=== PATIENT | male | born 1935 | race Caucasian/White ===

== ENCOUNTER 2016-12-04 10:28 | Outpatient (CLI) | payer MEDICARE, OTHER ==
--- NOTE | ~2016-12-04 | HEMODYNAMI ---
PATIENT:GISELLE FERRARA MEDICAL RECORD: [id number] : 39 LOCATION:[facility] ADMISSION DATE: 12/04/16 Generatedon:12/04/201613:55 Patient name: GISELLE FERRARA Patient #: [id number] SSN: DO B: 1935 Date of study: 12/04/2016 Page: Of Hemodynamic Procedure Report Patient Data Patient Demographics Procedure consent was obtained First Name: GISELLE Gender: Male Last Name: JOSIAS : 1935 [facility] Initial: MAISHA Age: 81 year(s) Patient #: [id number] Race: Unknown Additional ID: [id number] Contact details Address: [address] [place] [address] State: [place] City: [place] Zip code: [address] Past Medical History Allergies: No known allergies Admission Admission Data Admission Date: 12/04/2016 Admission Time: 10:28 Admit Source: Other Lab Results Lab Result Date: 12/04/2016 Lab Result Time: 10:55 CBC Name Units Result Min Max Hematocrit % 43.5 --(*---)-- 42 54 Hemoglobin g/dl 14.6 --(-*--)-- 13.5 17.5 Procedure Procedure Types Cath Procedure Diagnostic Procedure PPM/ICD Permanent Pacer Generator Exg. Miscellaneous Procedures Moderate Sedation up to 30 minutes Procedure Description Procedure Date Procedure Date: 12/04/2016 Procedure Start Time: 13:07 Procedure Staff Name Function Yohan De Guzman MD Performing Physician Martina Nina RT Scrub Mayra David RN Nurse Christiano Soler RT Monitor Pete Bull MD Assisting physician Procedure Data Cath Procedure Fluoroscopy Diagnostic fluoroscopy Total fluoroscopy Time: 0 time: 0 min min Diagnostic fluoroscopy Total fluoroscopy dose: 0 dose: 0 mGy mGy Contrast Material Contrast Material Type Amount (ml) Isovue 300 0 Estimated blood loss: 5 ml Procedure Complications No complications Procedure Medications Medication Administration Route Dosage Ancef (1Gm/50ml NS) I.V.P.B 1 g Ancef Irrigation Topical 1 g (1gm/500ml NS) Lidocaine 1% with added to field 20 ml Epi Bupivacaine 0.5% S.Q. 10 ml 0.9% NaCl I.V. Versed I.V. 2 mg Fentanyl I.V. 100 mcg Versed I.V. 0.5 mg Fentanyl I.V. 25 mcg Hemodynamics Rest HGB: 14.6 (g/dl) Heart Rate: 65 (bpm) Snapshots Pre Cath Intra NCS Post Cath Vital Signs Time Heart Resp SPO2 etCO2 NIBP (mmHg) Rhythm Pain Sedation Rate (ipm) (%) (mmHg) Status Level (bpm) 13:34:18 66 14 96 32.5 186/107(173) NSR 0 (11) 10(A) , No pain 13:38:55 68 15 97 35.5 172/94(143) NSR 0 (11) 10(A) , No pain 13:43:19 63 16 93 20.1 135/81(130) NSR 0 (11) 9(A) , No pain 13:48:38 60 17 95 26.4 153/86(135) NSR 0 (11) 9(A) , No pain 13:53:05 59 16 97 0 158/88(128) NSR 0 (11) 10(A) , No pain Medications Time Medication Route Dose Verified Delivered Reason Notes Effectiv eness by by 13:25:29 Ancef I.V.P.B 1 g Yohan Nunez used for (1Gm/50ml [facility] RN procedure NS) 13:25:40 Ancef Topical 1 g Yohan Cosmeian used for Irrigation [facility] Bull MD procedure (1gm/500ml NS) 13:35:43 Versed I.V. 2 mg Yohan Nunez for [facility] RN sedation 13:35:52 Fentanyl I.V. 100 Yohan Valle[address] for mcg [facility] RN sedation 13:37:17 Lidocaine added 20 ml Yohan Freeman for local 1% with Epi to [facility] Bull MD anesthetic field 13:37:26 Bupivacaine S.Q. 10 ml Yohan Freeman for local 0.5% [facility] Bull MD anesthetic MD 13:37:35 0.9% NaCl I.V. kvo Yohan Nunez Per ml/hr [facility] RN physician 13:40:18 Versed I.V. 0.5 Yohan Nunez for mg [facility] RN sedation 13:40:22 Fentanyl I.V. 25 Yohan Nunez for mcg [facility] RN sedation Procedure Log Time Note 12:45:35 Mayra David RN sent for patient. Start room use. 13:08:06 Informed consent obtained and on chart 13:08:14 Admit Source: Other 13:08:49 Time tracking: Regular hours 13:08:52 Plan of Care:Hemodynamics will remain stable., Cardiac rhythm will remain stable., Comfort level will be maintained., Respiratory function will remain adequate., Patient/ family verbilizes understanding of procedure., Procedure tolerated without complication., Recovers from procedure without complications.. 13:09:03 H&P Date Dictated: 11/05/2016 Within 30 days and on chart., H&P Addendum completed by physician on day of procedure. (MUST COMPLETE FOR ALL OUTPATIENTS). 13::40 Lab Result : Hemoglobin 14.6 g/dl 13::40 Lab Result : Hematocrit 43.5 % 13:09:42 Lab results completed and on chart. 13:20:57 Patient received from Pre/Post Procedure Room to [facility] Alert and oriented. Tansferred to table in Supine position. 13:20:59 Warm blankets applied, and pancho hugger turned on for patient comfort. 13:20:59 Correct patient and procedure confirmed by team. 13:21:00 ECG and BP/O2 sat monitors applied to patient. 13:21:01 Pre-procedure instructions explained to patient. 13:21:01 Pre-op teaching completed and patient verbalized understanding. 13:21:02 Family in waiting room. 13:21:04 Patient NPO since Midnight. 13:21:08 Patient allergic to No known allergies 13:21:10 Is the patient allergic to Iodine/contrast media? No. 13:25:29 Ancef (1Gm/50ml NS) 1 g I.V.P.B was administered by Mayra David RN; used for procedure; ::40 Ancef Irrigation (1gm/500ml NS) 1 g Topical was administered by Pete Bull MD; used for procedure; 13:32:22 Is patient on blood thinner?Yes 13:32:25 ACC The patient was administered the following blood thiners within the last 24 hours: ACCPlavix 13:32:27 Patient diabetic? No. 13:32:31 Snore? Yes 13:32:32 Sleep apnea? No 13:32:33 Deviated septum? No 13:32:33 Opens mouth fully? Yes 13:32:34 Sticks out tongue? Yes 13:32:36 Airway obstruction? No ? 13:32:42 Dentures? Yes IN TIGHT 13:32:53 Vital chart was started 13:32:56 Baseline sample Acquired. 13:32:59 Rhythm: paced 13:33:04 Patient pain scale 0/10 ?. 13:33:09 IV patent on arrival in left hand with 0.9% NaCl at [facility]. 13:33:17 Left chest area was prepped with chlora-prep and draped in sterile fashion 13:33:27 [employer] sales solutions representative AMANDA ART present for procedure. 13:33:35 Alarms reviewed by R. N. 13:33:35 Sharps counted by scrub and verified by R.N. 13:33:36 Physician arrived 13:33:36 --------ALL STOP TIME OUT------ 13:33:37 Final Timeout: patient, procedure, and site verified with staff and physician. All members of the team are in agreement. 13:33:42 Left chest site verified by team. 13:33:47 Physical assessment completed. ASA score P 2 - A patient with mild systemic disease as per Pete Bull MD. 13:33:50 Sedation plan: IV Moderate Sedation Versed, Fentanyl 13:35:43 Versed 2 mg I.V. was administered by Mayra David RN; for sedation; 13:35:52 Fentanyl 100 mcg I.V. was administered by Mayra David RN; for sedation; 13:37:02 Pre sharps counted by scrub and verified by RN: Sutures: 7 Sponges: 5 Stick needles: 0 Skin needles: 2 Blade: 1 Cautery: 1 13:37:04 Grounding pad site Left thigh. 13:37:05 Grounding pad site free from injury. 13:37:17 Lidocaine 1% with Epi 20 ml added to field was administered by Pete Bull MD; for local anesthetic; 13:37:26 Bupivacaine 0.5% 10 ml S.Q. was administered by Pete Bull MD; for local anesthetic; 13:37:35 0.9% NaCl kvo ml/hr I.V. was administered by Mayra David RN; Per physician; 13:38:10 Lidocaine 1% w/epi and Bupivacaine 0.5% to left subclavicular area by Pete Bull MD. 13:38:44 Incision made to left subclavicular area. 13:39:00 Generator pocket made/opened. 13:40:18 Versed 0.5 mg I.V. was administered by Mayra David RN; for sedation; 13:40:21 5.0 Monocryl PS3 [id number] opened to sterile field. 13:40:22 3.0 Vicryl Multipack [id number] opened to sterile field. 13:40:22 Fentanyl 25 mcg I.V. was administered by Mayra David RN; for sedation; 13:40:23 2.0 Ticron Multipack opened to sterile field. 13:42:42 Atrial lead tested. 13:42:45 Ventricular lead tested. 13:43:30 PPM Dual was removed.. 13:43:35 WISE s.r.la MRI PPM Dual Generator [id number] opened to sterile field. 13:43:41 PPM Dual was attached to lead(s) and inserted into pocket. 13:44:52 Device pocket was irrigated with Ancef. 13:45:33 Generator was sutured in place with 2-0 ticron. 13:46:39 Subcutaneous closure was completed with 3-0 vicryl plus. 13:47:27 Parameters-- Generator: Mode: MVP. Lower Rate: 60bpm. Upper Rate: 120bpm. 13:47:47 Parameters--Atrial P/R Wave: 2.3mV. Current: 2.0mA; Threshold: 0.4V; Impedence: 381OHMS. 13:48:04 Parameters--Ventricular P/R Wave: 3.8mV. Current: 1.4mA; Threshold: 0.4V; Impedence: 422OHMS. 13:48:47 Skin closure was completed with 5-0 monocryl. 13:52:01 Lt Chest incision was dressed with Mepilex dressing. 13:52:05 Procedure ended.(Physican Out) 13:52:32 Post sharps counted by scrub and verified by RN: Sutures: 7 Sponges: 5 Stick needles: 0 Skin needles: 2 Blade: 1 Cautery: 1 13:52:37 Fluoroscopy time 00.00 minutes. 13:52:40 Fluoroscopy dose: 0 mGy 13:52:40 Flurop Dose total: 0 13:52:43 Contrast amount:Isovue 300 0ml. 13:52:45 Sharps counted by scrub and verified by R.N. 13:53:49 Post Chest area:stable, soft, clean and dry 13:53:53 Post-procedure physical assessment completed. ASA score P 2 - A patient with mild systemic disease as per Pete Bull MD. 13:53:56 Post procedure rhythm: unchanged. 13:53:59 Estimated blood loss: 5 ml 13:54:00 Post procedure instruction explained to patient.Patient verbalizes understanding. 13:54:01 Patient needs reinforcement of post procedure teaching. 13:54:33 Procedure and supply charges have been captured, reviewed, submitted and are correct. 13:54:35 Procedure Complication : No complications 13:54:37 Vital chart was stopped 13:54:38 See physician's report for complete and final results. 13:54:39 Report given to Pre/Post Procedure Room. 13:54:42 Patient transfered to Pre/Post Procedure Room with Stretcher. 13:55:09 End room use (Document Last) Device Usage Item Name Manufacture Quantity Catalog Hospital Part Current Minimal Lo t# / Number Charge Number Stock Stock Serial# Code Medtronic Medtronic 1 [id number] 5 Advisa PV [id number] MRI PPM EX P: Dual 08-04-13 Generator A2DR01 5.0 Ethicon 1 [id number] 5 Monocryl PS3 [id number] 3.0 Ethicon 1 [id number] 5 Vicryl Multipack [id number] 2.0 Ethicon 6 [id number] [id number] [id number] 5 Ticron Multipack Signature Audit Shunk Stage Time Signature Unsigned Intra-Procedure 12/04/2016 Christiano Soler 1:55:39 PM RT(R) Signatures Monitor : Christiano Soler RT Signature : Date : Time : [place] [address] [place] [address]
[~2016-12-04 10:28] MED LIST: ADVAIR 250/501 DISK INH; ASPIRIN81 MG PO; ATIVAN1 MG PO; BAYER CHEWABLE81 MG PO; COMBIVENT RESPIM4 GM INH; COREG6.25 MG PO; DICLOFENAC SODI50 MG PO; FLINTSTONE1 TAB.CHEW PO; HYDROCODONE-APA1 TAB PO; NIASPAN500 MG PO; PLAVIX75 MG PO; ULTRAM50 MG PO; ZOCOR40 MG PO
[2016-12-04 10:51] VITALS: BP 151/81; BMI 27.2
[2016-12-04 11:11] LABS: HEMATOCRIT 43.5 % (42.0-54.0); HEMOGLOBIN 14.6 g/dL (13.5-17.5); MCH 31.5 pg (26.0-34.0); MCHC 33.6 g/dL (31.0-37.0); MEAN PLATELET VOLUME 9.8 fL (7.4-10.4); RBC 4.63 10x6/uL (4.20-6.10); RDW 14.9 % (11.5-14.5); WBC 5.8 10x3/uL (4.8-10.8)
[2016-12-04 11:25] LABS: ANION GAP 10.3 mmol/L (8-16); CREATININE - SERUM 1.2 mg/dL (0.6-1.3); POTASSIUM - SERUM 4.3 mmol/L (3.5-5.1)
[2016-12-04 11:35] LABS: INR 0.99 (0.85-1.17); PROTIME 12.9 SECONDS (11.6-15.0)
[2016-12-04 11:41] LABS: APTT 26.8 SECONDS (22.8-39.4)
--- NOTE | 2016-12-04 14:21 | NUR ---
1415 RECEIVED PT FROM CHIEF COOK. PT IS ALERT, DENIES ANY C/O PAIN OR NAUSEA. DRESSING TO LEFT UPPER CHEST IS CDI, NO BLEEDING OR HEMATOMA NOTED. IV PATENT. FAMILY AT BEDSIDE. PO FLUIDS AND SANDWICH SERVED. VSS.
--- NOTE | 2016-12-04 14:30 | NUR ---
1430 SANDWICH AND PO FLUIDS SERVED.PT DENIES ANY C/O. DRESSING CDI, AT BEDSIDE.
--- NOTE | 2016-12-04 14:45 | NUR ---
1445 PT DENIES ANY C/O. VSS. DRESSING CDI. CALL LIGHT IN REACH.
--- NOTE | 2016-12-04 15:00 | NUR ---
1500 PT HAS JOSESITO SANDWICH AND PO FLUIDS WITH NO C/O NAUSEA. DRESSING REMAINS CDI. VSS. IV DC'D WITH CATH INTACT.
--- NOTE | 2016-12-04 16:08 | NUR ---
1520 PT IS DRESSED FOR DC TO HOME. DRESSING CDI, PT DENIES ANY C/O AT THIS TIME. DC INSTRUCTIONS REVIEWED AND PT/ VERBALIZE UNDERSTANDING. PT ESCORTED TO PRIVATE AUTO VIA WC BY NURSE WITH DRIVING HIM HOME.
--- NOTE | 2016-12-07 13:11 | OP ---
PATIENT NAME: GISELLE FERRARA MEDICAL RECORD: [id number] :39 LOCATION:[facility] ADMISSION DATE: SURGEON: CATERINA GARCIA MD DATE OF OPERATION: 12/04/2016 PREOPERATIVE DIAGNOSES: 1. End-of-life generator. 2. Coronary artery disease. 3. Hyperlipidemia. 4. Hypertension. 5. Atrial fibrillation. 6. Peripheral vascular disease. 7. Tobacco dependence syndrome. POSTOPERATIVE DIAGNOSES: 1. End-of-life generator. 2. Coronary artery disease. 3. Hyperlipidemia. 4. Hypertension. 5. Atrial fibrillation. 6. Peripheral vascular disease. 7. Tobacco dependence syndrome. PROCEDURE: Left subclavian vein dual lead pacemaker generator exchange. SURGEON: Caterina Garcia MD. REPORT OF PROCEDURE: The patient's left chest was prepped and draped in sterile fashion. A 20 mL of 1% lidocaine was infused in the surrounding tissues. A skin incision was made overlying the pacemaker. The pacemaker was eviscerated through the wound. The leads were detached from the pacemaker and checked and they were noted to be working appropriately. The new pacemaker was affixed to the leads and the pacemaker was placed back into the subcutaneous pouch. This was sutured into place with 0 Ti-Cron. The wound was then irrigated out with antibiotic solution. The subcutaneous tissues were then reapproximated with interrupted 3-0 Vicryl and the skin was closed with running subcutaneous 5-0 Monocryl. COMPLICATIONS: None. CONDITION: Stable. ANESTHESIA: Local MAC. BLOOD LOSS: Minimal. TRANSINT:[id number] Voice Confirmation ID: [id number] DOCUMENT ID: [id number] OPERATIVE REPORT [id number] GISELLE FERRARA CATERINA GARCIA MD at 1311 CC: BENSON WALLACE MD [id number] DICTATION DATE: 12/04/16 1355 FUR WEIGHER: 12/04/16 1419 DEP CLI 12/04/[address] [address]
== END 2016-12-04 15:20 | disposition home or self-care (01) ==
LOC: D.CATH 10:28
PROVIDERS: Internal Medicine Interventional Cardiology
DX: Z45.010 Encounter for checking and testing of cardiac pacemaker pulse generator [battery] (principal); I25.10 Atherosclerotic heart disease of native coronary artery without angina pectoris; E78.5 Hyperlipidemia, unspecified; I10 Essential (primary) hypertension; I48.91 Unspecified atrial fibrillation; I73.9 Peripheral vascular disease, unspecified; F17.200 Nicotine dependence, unspecified, uncomplicated; Z01.812 Encounter for preprocedural laboratory examination

== ENCOUNTER → 2018-01-03 12:22 | Outpatient (CLI) | payer MEDICARE, OTHER | END | disposition home or self-care (01) | LOC: D.US 12:22 | DX: M79.604 Pain in right leg (principal) ==

== ENCOUNTER → 2018-02-28 08:16 | Outpatient (CLI) | payer MEDICARE, OTHER | END | disposition home or self-care (01) | LOC: D.CT 08:16 | DX: C61 Malignant neoplasm of prostate (principal); M18.0 Bilateral primary osteoarthritis of first carpometacarpal joints ==

== ENCOUNTER 2018-04-28 09:47 | Outpatient (CLI) | payer MEDICARE, OTHER ==
[~2018-04-28] VITALS: Ht 182.9 cm; Wt 89.5 kg
--- NOTE | ~2018-04-28 | HEMODYNAMI ---
PATIENT:GISELLE FERRARA MEDICAL RECORD: [id number] : 39 LOCATION:[facility] ADMISSION DATE: 04/28/18 Generatedon:04/28/201815:32 Patient name: GISELLE FERRARA Patient #: [id number] SSN: DO B: 1935 Date of study: 04/28/2018 Page: Of Hemodynamic Procedure Report Patient Data Patient Demographics Procedure consent was obtained First Name: GISELLE Gender: Male Last Name: JOSIAS : 1935 [facility] Initial: MAISHA Age: 82 year(s) Patient #: [id number] Race: Unknown Additional ID: [id number] Contact details Address: [address] [place] [address] State: [place] City: [place] Zip code: [address] Past Medical History Allergies: No known allergies Admission Admission Data Admission Date: 04/28/2018 Admission Time: 9:47 Procedure Procedure Types Cath Procedure Peripheral Cath Diagnostic Procedure Abd/Extremity Extremities Procedure Description Procedure Date Procedure Date: 04/28/2018 Procedure Start Time: 12:25 Procedure Staff Name Function Luke Ta MD Performing Physician Kirsten Mckeon RN Nurse Rigoberto Eastman RT Monitor Procedure Data Cath Procedure Fluoroscopy Diagnostic fluoroscopy Total fluoroscopy Time: time: 30.8 min 30.8 min Diagnostic fluoroscopy Total fluoroscopy dose: dose: 1509 mGy 1509 mGy Contrast Material Contrast Material Type Amount (ml) Isovue 300 130 Entry Location Entry Primary Successful Side Size Upsize Upsize Entry Closure Succes sful Closure Location (Fr) 1 (Fr) 2 (Fr) Remarks Device Remarks Femoral Left 5 Fr Exoseal artery Diagnostic catheters Device Type Used For End Catheter Placement DIAGNOSTIC IMT 5Fr Lower extremity Catheter ([id number]) arteriography Cook CHG-B 5FR 65CM Lower extremity catheter (O50151) arteriography Angiodynamics SOS OMNI 2 Lower extremity NON B 5FR 65CM catheter arteriography (65836347) Merit ULTRA BOLUS FLUSH 5Fr 65CM catheter ([id number]) Procedure Medications Medication Administration Route Dosage Heparin Flush Bag added to field 3 bags (1000units/500ml NS) Lidocaine 1% added to field 20 Heparin Flush Bag added to field 1 bags (1000units/500ml NS) Heparin Bolus I.V. 4000 units Heparin Bolus I.V. 1000 units Nitroglycerin IC/IA I.A. 400 mcg Hemodynamics Rest Pre Cath Intra NCS Post Cath Medications Time Medication Route Dose Verified Delivered Reason Notes Effe ctiveness by by 11:54:42 Heparin Flush added 3 Luke Butler used for Bag to bags Cely Ta MD procedure (1000units/500ml field NS) 11:54:53 Lidocaine 1% added 20ml Luke Butler for local to vial Cely Ta MD anesthetic field 13:42:01 Heparin Flush added 1 Luke Butler used for Bag to bags Cely Ta MD procedure (1000units/500ml field NS) 13:42:13 Heparin Bolus I.V. 4000 Luke Sharif Per units Mike Ta RN physician 14:02:08 Heparin Bolus I.V. 1000 Luke Sharif Per units Mike Ta RN physician 14:44:14 Nitroglycerin I.A. 400 Luke Luke IC/IA mcg Cely Ta MD MD Procedure Log Time Note 11:37:09 Rigoberto Eastman RT (R) (CV) sent for patient. Start room use. 11:37:18 Time tracking: Regular hours (M-F 7:00 - 5:00) 11:37:19 Plan of Care:Hemodynamics will remain stable., Cardiac rhythm will remain stable., Comfort level will be maintained., Respiratory function will remain adequate., Patient/ family verbilizes understanding of procedure., Procedure tolerated without complication., Recovers from procedure without complications.. 11:37:28 Patient received from Outpatients to IR Alert and oriented. Tansferred to table in Supine position. 11:37:33 Correct patient and procedure confirmed by team. 11:37:40 Signed procedure consent form obtained from patient. 11:37:42 ECG and BP/O2 sat monitors applied to patient. 11:37:48 Full Disclosure recording started 11:37:49 - 11:38:12 SEE ANESTHESIA NOTE FOR PRE TIVA 11:38:13 - 11:38:16 Use device set IR Diagnostic 11:38:18 ACIST Syringe (69829) opened to sterile field. 11:38:19 ACIST Hand Control (10524) opened to sterile field. 11:38:19 ACIST Manifold (10285) opened to sterile field. 11:38:20 Bag Decanter (2001S) opened to sterile field. 11:38:20 Sterile Angiographic Pack opened to sterile field. 11:38:20 Tegaderm 4 x 4 (1626W) opened to sterile field. 11:38:33 H&P Date Dictated: 04/28/2018 H&P Addendum completed by physician on day of procedure. (MUST COMPLETE FOR ALL OUTPATIENTS). 11:38:34 Pre-procedure instructions explained to patient. 11:38:34 Pre-op teaching completed and patient verbalized understanding. 11:38:36 Family in waiting room. 11:38:38 Patient NPO since Midnight. 11:40:25 Pre procedure: right dorsailis pedis pulse Doppler 11:40:28 Pre procedure: left dorsailis pedis pulse Doppler 11:40:33 Pre procedure: right posterior tibial pulse None 11:40:37 Pre procedure: left posterior tibial pulse Doppler 11:54:42 Heparin Flush Bag (1000units/500ml NS) 3 bags added to field was administered by Luke Ta MD; used for procedure; 11:54:53 Lidocaine 1% 20ml vial added to field was administered by Luke Ta MD; for local anesthetic; 11:55:18 see anesthesia record 12:24:07 Left groin area was prepped with chlora-prep and draped in sterile fashion 12:24:09 Alarms reviewed by R. N. 12:24:09 Sharps counted by scrub and verified by R.N. 12:24:13 Physician arrived 12:24:13 --------ALL STOP TIME OUT------ 12:24:14 Final Timeout: patient, procedure, and site verified with staff and physician. All members of the team are in agreement. 12:24:17 Left groin site verified by team. 12:24:36 Fire Safety Assessment: A--An alcohol-based skin anteseptic being used preoperatively., C--Open oxygen or nitrous oxide is being used. 12:24:44 Sedation plan: General Anesthesia Medication:General Anesthesia 12:25:02 Procedure started. 12:25:39 Local anesthetic to left femerol artery with Lidocaine 1% by Rigoberto Eastman RT (R) (CV).INITIAL ACCESS ONLY 12:26:37 SHEATH 6FR Destination (RSR01) opened to sterile field. 12:26:37 Angiodynamics Omniflush 5Fr 65cm (32830085) opened to sterile field. 12:26:38 SHEATH 5FR [place] (BYE252) opened to sterile field. 12:26:38 Micropuncture VSI 4FR kit opened to sterile field. 12:26:39 DOC .035 wire (T11866) opened to sterile field. 12:26:40 SUAREZ 260 wire (P77865) opened to sterile field. 12:26:40 TUBING Contrast Injection High Pressure (XRC302E) opened to sterile field. 12:27:13 A 5 Fr sheath was inserted into the Left Femoral artery 12:32:18 GLIDE WIRE ANGLE 180cm (LB7143) opened to sterile field. 12:32:24 GLIDE CATHETER 5FR ANGLED 65cm (CG507) opened to sterile field. 12:36:31 AMPLATZ Super stiff 180cm wire ([id number]) opened to sterile field. 12:39:38 AMPLATZ Super stiff 3mm J 260cm wire ([id number]) opened to sterile field. 12:48:03 TORQUE DEVICE PLASTIC .038 ( TD01) opened to sterile field. 12:52:45 GLIDE WIRE MERIT Angled 260cm ([id number]) opened to sterile field. 12:54:47 A DIAGNOSTIC IMT 5Fr Catheter (138285988) was advanced over the wire an d used for Lower extremity arteriography. 12:58:09 ROADRUNNER .035 260 glide wire (K18660) opened to sterile field. 13:01:22 GLIDE CATHETER 5FR COBRA 65cm (CG502) opened to sterile field. 13:06:02 A [employer] CHG-B 5FR 65CM catheter (S03853) was advanced over the wire and used for Lower extremity arteriography. 13:12:36 A [employer] OMNI 2 NON B 5FR 65CM catheter (98271353) was advanced over the wire and used for Lower extremity arteriography. 13:17:22 A [employer] ULTRA BOLUS FLUSH 5Fr 65CM catheter ([id number]) was advanced over the wire and used for . 13:31:21 CXI Catheter 90cm (M53888) opened to sterile field. 13:40:53 CXI Catheter 90cm (Y56541) opened to sterile field. 13:41:20 Right Pedal was prepped with chlora-prep and draped in sterile fashion. 13:41:46 Local anesthetic to Right PEDAL with Lidocaine 1% by Luke Ta MD.ADDITIONAL ACCESS 13:42:01 Heparin Flush Bag (1000units/500ml NS) 1 bags added to field was administered by Luke Ta MD; used for procedure; 13:42:13 Heparin Bolus 4000 units I.V. was administered by Chante Mckeon RN; Per physician; 13:42:52 Micropuncture VSI 4FR kit opened to sterile field. 13:58:38 Micropuncture VSI 4FR kit opened to sterile field. 14:02:08 Heparin Bolus 1000 units I.V. was administered by Chante Mckeon RN; Per physician; 14:03:12 CHOICE PT Extra Support J 300cm guide wire (3717558M7) opened to steril e field. 14:03:20 INFLATOR BasixTOUCH (NZ6457) opened to sterile field. 14:07:03 Hawkone Medium Atherectomy System (H1-M) opened to sterile field. 14:07:15 Inflate balloon Inflation number: 1 A [place] Plus 4 x 4 x 130 Balloon ([id number]) was prepped and advanced across the Proximal Superficial Femoral, Right, then inflated to 14 FREDERIC for 0:09 (min:sec). 14:41:39 Inflate balloon Inflation number: 2 A In.Pact Admiral 5 x 60 x 130 DCB ([id number]) was prepped and advanced across the Proximal Superficial Femoral, Right, then inflated to 14 FREDERIC for 3:10 (min:sec). 14:42:29 EXOSEAL 5Fr (EX500) opened to sterile field. 14:44:14 Nitroglycerin IC/IA 400 mcg I.A. was administered by Luke Ta MD; ; 14:45:52 Sheath removed intact; hemostasis achieved with Exoseal to the Left Femoral artery. 14:56:06 Procedure ended.(Physican Out) 14:56:15 Fluoroscopy time 30.80 minutes. 14:56:36 Fluoroscopy dose: 1509 mGy 14:56:36 Flurop Dose total: 1509 14:56:41 Sharps counted by scrub and verified by R.N. 14:56:42 Insertion/operative site no bleeding no hematoma. 14:56:46 Post-op/insertion site Left Femoral artery dressed using a 4 x 4 and Tegaderm. 14:56:53 Post left femerol artery:stable 14:57:03 Post Procedure Pulses reassessed and unchanged 14:57:05 Post procedure instruction explained to patient.Patient verbalizes understanding. 14:57:07 Procedure and supply charges have been captured, reviewed, submitted an d are correct. 14:59:35 Contrast amount:Isovue 300 130ml. 15:31:48 Report given to Other. 15:32:08 Patient transfered to Other with Stretcher. Intervention Summary Intervention Notes Time ActionType Lesion and Equipment Used Action# Pressure Duration Attributes 14:07:15 Inflate Proximal [place] Plus 4 1 14 00:09 balloon Superficial x 4 x 130 Femoral, Balloon Right ([id number]) 14:41:39 Inflate Proximal In.Pact 2 14 03:10 balloon Superficial Admiral 5 x 60 Femoral, x 130 DCB Right ([id number]) Device Usage Item Name Manufacture Quantity Catalog Number Hospital Part Current Minimal Lot# / Charge Number Stock Stock Serial# Code ACIST Syringe Acist Medical 1 68621 632668 207717 852594 20 (89249) Systems Inc ACIST Hand Acist Medical 1 08892 630126 543633 078266 5 Control (15609) Systems Inc ACIST Manifold Acist Medical 1 03203 385604 316244 041750 5 (47409) Systems Inc Bag Decanter Microtek 1 2001S 826734 85569 940693 5 () Medical Inc. Sterile Cardinal 1 [id number] 375291 597456 5 Angiographic Health Pack Tegaderm 4 x 4 3M 1 1626W 153865 136247 037887 5 (1626W) SHEATH 6FR Terumo 1 RSR01 521520 18577 256411 5 Destination (RSR01) Angiodynamics Angiodynamics 1 43159536 496855 744092 972570 5 Omniflush 5Fr 65cm (32249188) SHEATH 5FR Terumo 1 PMU164 020427 849905 780445 5 [place] (FXI723) Micropuncture VSI VASCULAR 3 7266V 108787 822982 5 VSI 4FR kit SOLUTIONS DOC .035 wire Cook Medical 1 H78468 651389 098728 5 (N88198) SUAREZ 260 wire [facility] [employer] 1 N88113 426849 39209 752174 5 (S51476) TUBING Contrast [facility] 1 ZII904Z 665542 590878 617008 5 Injection High Pressure (NIN496W) GLIDE WIRE Terumo 1 HX3617 241201 686496 530134 5 ANGLE 180cm (YO3024) GLIDE CATHETER Terumo 1 CG507 888975 161027 5 5FR ANGLED 65cm (CG507) AMPLATZ Super [place] 1 [id number] 167551 928438 296053 5 [id number] stiff 180cm Scientific wire ([id number]) AMPLATZ Super [place] 1 [id number] 076895 111143 5 stiff 3mm J Scientific 260cm wire ([id number]) TORQUE DEVICE [place] 1 TD01 576246 646758 698059 5 PLASTIC .038 ( Scientific TD01) GLIDE WIRE Merit Medical 1 [id number] 342217 329612 243487 5 [id number] MERIT Angled 260cm ([id number]) DIAGNOSTIC IMT [place] 1 [id number] 960016 401816 29394 5 38795352 5Fr Catheter Scientific (239364217) ROADRUNNER .035 Cook Medical 1 I66490 850081 764050 729078 5 8068469 260 glide wire (J23219) GLIDE CATHETER Terumo 1 CG502 841485 154026 5 5FR COBRA 65cm (CG502) [employer] CHG-B 5FR [employer] Medical 1 E54294 472063 213274 361622 5 65CM catheter (A08667) Angiodynamics Angiodynamics 1 37638336 798018 19872 554913 5 SOS OMNI 2 NON B 5FR 65CM catheter (42353039) [employer] Games ULTRA Myrio Solution 1 [id number] 492575 310876 5 BOLUS FLUSH 5Fr 65CM catheter ([id number]) CXI Catheter Beat My Waste Quote 2 F48885 668590 672846 758539 5 2689826 90cm (G05593) 3840575 CHOICE PT Extra [place] 1 [id number] 582760 937639 540921 5 81904546 Support J 300cm Scientific guide wire (9148325H4) INFLATOR Myrio Solution 1 RD8622 567140 657415 732101 5 BasixTOUCH (WK5516) Hawkone Medium Medtronic 1 H1-M 517517 76272656 5 [id number] Atherectomy System (H1-M) [place] Plus 4 Medtronic 1 [id number] 811597 913457 137739 5 x 4 x 130 Balloon ([id number]) In.Pact Admiral Medtronic 1 [id number] 052622 398867 549492 5 5 x 60 x 130 DCB ([id number]) EXOSEAL 5Fr Cardinal 1 EX500 712089 327781 238877 10 32337180 (EX500) Health Signature Audit [place] Stage Time Signature Unsigned Intra-Procedure 04/28/2018 Rigoberto 3:32:42 PM [place] RT (R) (CV) Signatures Monitor : Rigoberto Signature : [place] RT Date : Time : [facility] [address] [place] [address]
[2018-04-28 10:36] LABS: BASOPHILS 0.2 % (0-2); EOSINOPHILS 2.4 % (0-7); HEMATOCRIT 37.5 % (42.0-54.0); HEMOGLOBIN 12.3 g/dL (13.5-17.5); IMMATURE GRANULOCYTES 0.3 % (0-5); LYMPHOCYTES 14.2 % (15-50); MCH 31.1 pg (26.0-34.0); MCHC 32.8 g/dL (31.0-37.0); MCV 94.9 fL (80.0-100.0); MEAN PLATELET VOLUME 9.6 fL (7.4-10.4); MONOCYTES 11.6 % (2-11); NEUTROPHILS 71.3 % (40-80); RBC 3.95 10x6/uL (4.20-6.10); WBC 6.1 10x3/uL (4.8-10.8)
[2018-04-28 10:37] LABS: PLATELET COUNT 299 10x3/uL (130-400)
[2018-04-28 10:46] LABS: APTT 29.7 SECONDS (22.8-39.4); INR 0.99 (0.85-1.17); PROTIME 12.6 SECONDS (11.6-15.0)
[2018-04-28] MEDS ORDERED: XTANDI40 MG PO (10:53)
[2018-04-28] MEDS ORDERED: CELEXA20 MG PO (10:54)
[2018-04-28] MEDS ORDERED: MOBIC7.5 MG PO (10:55)
[2018-04-28] MEDS ORDERED: CILOSTAZOL50 MG PO (10:56)
[2018-04-28] MEDS ORDERED: WELLBUTRIN XL150 M1 PO (10:57)
[2018-04-28] MEDS ORDERED: FUROSEMIDE20 MG PO (10:57)
[2018-04-28 11:06] LABS: ANION GAP 5.5 mmol/L (8-16); CALCIUM 8.6 mg/dL (8.5-10.1); CARBON DIOXIDE 25.8 mmol/L (21.0-32.0); CREATININE - SERUM 1.2 mg/dL (0.6-1.3); POTASSIUM - SERUM 4.3 mmol/L (3.5-5.1)
[2018-04-28 11:26] VITALS: BP 164/78; Ht 182.9 cm; Wt 89.5 kg
--- NOTE | 2018-04-28 15:41 | NUR ---
1530 SEE POST PROCEDURE CHECKLIST FOR VITAL SIGN TRENDS.
--- NOTE | 2018-04-28 16:04 | NUR ---
1555 ROUNDS BY RADIOLOGY NURSE LANEY MAJOR.
== END 2018-04-28 18:10 | disposition home or self-care (01) ==
LOC: D.SP 09:47 → D.RAD 12:00 → D.SP 12:00 → D.RAD 13:00 → D.SP 18:10
PROVIDERS: ATTEND General Practice
DX: I70.213 Atherosclerosis of native arteries of extremities with intermittent claudication, bilateral legs (principal); Z01.812 Encounter for preprocedural laboratory examination

== ENCOUNTER 2018-06-13 08:22 | Outpatient (CLI) | payer MEDICARE, OTHER ==
[~2018-06-13] VITALS: Ht 182.9 cm; Wt 88.6 kg
--- NOTE | ~2018-06-13 | HEMODYNAMI ---
PATIENT:GISELLE FERRARA MEDICAL RECORD: [id number] : 39 LOCATION:[facility] ADMISSION DATE: 06/13/18 Generatedon:06/13/201814:37 Patient name: GISELLE FERRARA Patient #: [id number] SSN: DO B: 1935 Date of study: 06/13/2018 Page: Of Hemodynamic Procedure Report Patient Data Patient Demographics Procedure consent was obtained First Name: GISELLE Gender: Male Last Name: JOSIAS : 1935 [facility] Initial: MAISHA Age: 82 year(s) Patient #: [id number] Race: Unknown Additional ID: [id number] Contact details Address: [address] [place] [address] State: [place] City: [place] Zip code: [address] Past Medical History Allergies: No known allergies Admission Admission Data Admission Date: 06/13/2018 Admission Time: 8:22 Procedure Procedure Types Cath Procedure Peripheral Cath Diagnostic Procedure Abd/Extremity Extremities Left Lower Ext Arterio Procedure Description Procedure Date Procedure Date: 06/13/2018 Procedure Start Time: 12:25 Procedure Staff Name Function Rigoberto Eastman RT Scrub Luke Ta MD Performing Physician Kirsten Hardy RT Monitor Chante Mckeon RN Nurse Francoise Saleh RN Nurse KAREN ARMSTRONG RT Scrub Agnieszka Kebede RT Roofing Machine Tender Procedure Data Cath Procedure Fluoroscopy Diagnostic fluoroscopy Total fluoroscopy Time: time: 19.8 min 19.8 min Diagnostic fluoroscopy Total fluoroscopy dose: 524 dose: 524 mGy mGy Contrast Material Contrast Material Type Amount (ml) Isovue 300 110 Procedure Medications Medication Administration Route Dosage Lidocaine 1% added to field 20 Heparin Flush Bag (1000units/500ml NS) Heparin Bolus I.V. 5000 units Hemodynamics Rest Heart Rate: 61 (bpm) Snapshots Pre Cath Intra NCS Post Cath Vital Signs Time Heart Resp SPO2 etCO2 NIBP (mmHg) Rhythm Pain Sedation Rate (ipm) (%) (mmHg) Status Level (bpm) 11:56:24 60 8 98 0 162/82(128) NSR 0 (11) 8(A) , No pain 12:00:46 59 15 98 0 156/73(132) NSR 0 (11) 8(A) , No pain 12:05:08 99 12 97 23.3 133/65(103) NSR 0 (11) 8(A) , No pain 12:09:22 63 13 92 23.4 131/75(97) NSR 0 (11) 8(A) , No pain 12:13:39 61 10 95 15 117/65(80) NSR 0 (11) 8(A) , No pain 12:17:50 60 12 96 14.3 123/61(97) NSR 0 (11) 8(A) , No pain 12:22:06 59 11 98 14.3 111/56(74) NSR 0 (11) 8(A) , No pain 12:26:18 59 10 98 10 105/55(78) NSR 0 (11) 8(A) , No pain 12:30:30 61 11 98 14 105/47(78) NSR 0 (11) 8(A) , No pain 12:34:40 60 9 98 12 94/49(65) NSR 0 (11) 8(A) , No pain 12:38:46 60 12 96 26.3 102/51(85) NSR 0 (11) 8(A) , No pain 12:42:54 60 10 95 13.5 108/55(75) NSR 0 (11) 8(A) , No pain 12:47:06 59 10 95 9.8 106/51(78) NSR 0 (11) 8(A) , No pain 12:51:15 59 10 96 13.5 105/54(80) NSR 0 (11) 8(A) , No pain 12:55:25 59 10 96 36.2 120/49(83) NSR 0 (11) 8(A) , No pain 12:59:39 59 10 96 36.2 116/59(75) NSR 0 (11) 8(A) , No pain 13:03:51 59 11 97 36.1 110/60(81) NSR 0 (11) 8(A) , No pain 13:08:03 60 10 95 34.6 102/52(80) NSR 0 (11) 8(A) , No pain 13:12:11 60 10 96 36.1 110/58(89) NSR 0 (11) 8(A) , No pain 13:16:21 59 10 96 36.1 119/58(91) NSR 0 (11) 8(A) , No pain 13:20:35 59 10 95 36.9 114/59(86) NSR 0 (11) 8(A) , No pain 13:24:47 61 10 95 36.1 120/54(87) NSR 0 (11) 8(A) , No pain 13:29:03 59 10 95 37.6 114/53(88) NSR 0 (11) 8(A) , No pain 13:33:15 59 11 95 38.4 115/56(87) NSR 0 (11) 8(A) , No pain 13:37:25 67 8 93 9 111/62(104) NSR 0 (11) 8(A) , No pain 13:42:24 60 8 95 0 Measuring NSR 0 (11) 8(A) , No pain 13:42:26 59 8 95 0 121/69(95) NSR 0 (11) 8(A) , No pain 13:46:40 59 9 96 24.1 122/59(96) NSR 0 (11) 8(A) , No pain 13:50:54 60 8 95 0 127/59(103) NSR 0 (11) 8(A) , No pain 13:55:06 59 9 95 0 116/72(98) NSR 0 (11) 8(A) , No pain 13:59:16 61 10 96 12.8 130/63(94) NSR 0 (11) 8(A) , No pain 14:03:30 59 11 95 35.4 132/71(104) NSR 0 (11) 8(A) , No pain 14:07:43 61 12 95 32.3 118/69(107) NSR 0 (11) 8(A) , No pain 14:11:53 63 12 94 15 138/68(100) NSR 0 (11) 8(A) , No pain 14:16:14 67 12 95 14.3 118/59(87) NSR 0 (11) 8(A) , No pain 14:20:25 60 11 95 7.5 116/61(83) NSR 0 (11) 8(A) , No pain 14:24:31 60 13 0 126/73(97) NSR 0 (11) 8(A) , No pain 14:28:45 60 20 0 127/66(99) NSR 0 (11) 8(A) , No pain 14:32:45 2.2 No Cuff NSR 0 (11) 8(A) , No pain Medications Time Medication Route Dose Verified Delivered Reason Notes Effe ctiveness by by 11:56:38 Lidocaine 1% added 20ml Luke Butler for local to vial Cely Ta MD anesthetic field MD 11:57:06 Heparin Flush Luke Butler used for Bag Cely Ta MD procedure (1000units/500ml NS) 12:57:19 Heparin Bolus I.V. 5000 Luke Sharif Per units Mike Ta RN physician Procedure Log Time Note 11:41:06 Use device set IR Diagnostic 11:41:21 Bag Decanter (2002S) opened to sterile field. 11:41:23 Sterile Angiographic Pack opened to sterile field. 11:41:24 Tegaderm 4 x 4 (1626W) opened to sterile field. 11:41:39 Francoise Saleh RN sent for patient. Start room use. 11:55:32 Time tracking: Regular hours (M-F 7:00 - 5:00) 11:55:43 Plan of Care:Hemodynamics will remain stable., Cardiac rhythm will remain stable., Comfort level will be maintained., Respiratory function will remain adequate., Patient/ family verbilizes understanding of procedure., Procedure tolerated without complication., Recovers from procedure without complications.. 11:55:54 Patient received from Outpatients to IR Alert and oriented. Tansferred to table in Supine position. 11:55:56 Warm blankets applied, and panhco hugger turned on for patient comfort. 11:55:59 Correct patient and procedure confirmed by team. 11:56:04 Signed procedure consent form obtained from patient. 11:56:06 Vital chart was started 11:56:06 ECG and BP/O2 sat monitors applied to patient. 11:56:13 Baseline sample Acquired. 11:56:38 Lidocaine 1% 20ml vial added to field was administered by Luke Ta MD; for local anesthetic; 11:57:06 Heparin Flush Bag (1000units/500ml NS) was administered by Luke Ta MD; used for procedure; 11:57:16 H&P Date Dictated: 06/13/2018 H&P Addendum completed by physician on day of procedure. (MUST COMPLETE FOR ALL OUTPATIENTS). 11:57:19 Pre-procedure instructions explained to patient. 11:57:20 Pre-op teaching completed and patient verbalized understanding. 11:58:30 Family in patients room. 11:58:37 Patient NPO since Midnight. 11:58:46 Patient allergic to No known allergies 11:58:57 Is the patient allergic to Iodine/contrast media? No. 11:59:01 Is patient on blood thinner?Yes 12:00:06 ACC The patient was administered the following blood thiners within the last 24 hours: ACCAspirin, ACCPlavix 12:00:49 Patient diabetic? No. 12:00:52 - 12:00:54 ----Pre-sedation anethsthesia assessment.----SEE ANESTHESIA PRE ASSESSMENT NOTE---- 12:01:36 Pre procedure: BILATERALLY dorsailis pedis pulse Doppler 12:02:52 IV patent on arrival in left hand with 0.9% NaCl at [facility]. 12:03:09 LEFT groin AND LEFT ANKLE AREA area was prepped with chlora-prep and draped in sterile fashion 12:03:12 Alarms reviewed . 12:03:13 Sharps counted by scrub and verified. 12:04:09 SHEATH 5FR [place] (RIA494) opened to sterile field. 12:04:24 DOC .035 wire (D74126) opened to sterile field. 12:04:47 MICROPUNCTURE 4FR Cook (X89397) opened to sterile field. 12:16:53 Cordis 5Fr BRITE TIP 11cm sheath opened to sterile field. 12:20:45 Physician arrived 12:20:46 --------ALL STOP TIME OUT------ 12:20:48 Final Timeout: patient, procedure, and site verified with staff and physician. All members of the team are in agreement. 12:20:59 Sedation plan: TIVA Medication:Propofol, Lidocaine 12:21:25 Procedure started. 12::26 Full Disclosure recording started 12:25:02 Local anesthetic to left femerol artery with Lidocaine 1% by Luke Ta MD.INITIAL ACCESS ONLY 12:26:16 Access obtained with 4Fr micropunture. 12:29:22 AMPLATZ Super Stiff 75cm wire ([id number]) opened to sterile field. 12:30:04 The 5 latvian britetip sheath is inserted. 12:51:25 GLIDE WIRE MERIT Angled 260cm ([id number]) opened to sterile field. 12:51:26 GLIDE CATHETER 5FR ANGLED 65cm (CG507) opened to sterile field. 12:51:45 TORQUE DEVICE PLASTIC .038 ( TD01) opened to sterile field. 12:52:40 An injection is made on the entire left leg. 12:54:21 Cordis 6Fr BRITE TIP 11cm sheath opened to sterile field. 12:54:23 SUAREZ 260 wire (V47684) opened to sterile field. 12:56:06 CHOICE PT Extra Support J 300cm guide wire ([id number]) opened to steril e field. 12:57:19 INFLATOR BasixTOUCH (IL8886) opened to sterile field. 12:57:19 Heparin Bolus 5000 units I.V. was administered by Chante Mckeon RN; Per physician; 12:57:42 ACIST Manifold (97689) opened to sterile field. 12:57:43 ACIST Hand Control (74708) opened to sterile field. 12:57:44 ACIST Syringe (43661) opened to sterile field. 12:58:45 the 5 latvian sheath is exchanged for a 6 latvian britetip. 12:59:23 The pt choice 0.14wire is used to manuver down the left popliteal. 12:59:59 Inflate balloon Inflation number: 1 A CHOCOLATE 3.0 x 120 x 150 balloon ([id number]) was prepped and advanced across the proximal sfa left, then inflated to 9 FREDERIC for 2.30 (min:sec). 13:06:51 2nd inflation with same balloon in mid sfa,9atm@1.45min. 13:08:55 A 3rd inflation with same balloon is made to the popliteal,9 atms@1.30sec. 13:11:59 Hawkone Medium Atherectomy System (H1-M) opened to sterile field. 13:12:38 The balloon is removed leaving the wire. 13:15:06 The HAWKONE (m) is inserted over the wire. 13:29:57 2 passes are made with the hawk to the mid sfa. 13:40:48 a 3rd pass is made with the hawk down to the proximal popliteal. 13:47:49 Inflate balloon Inflation number: 2 A CHOCOLATE 5.0 x 120 x 135 balloon ([id number]) was prepped and advanced across the proximal left sfa, then inflated to 6 FREDERIC for 01.30 (min:sec). 13:52:38 a 2nd inflation is made with same balloon mid sfa, 6atm@1.30min. 13:54:46 Contrast is visualized down the left leg on several runs. 13:59:13 EXOSEAL 6Fr (EX600) opened to sterile field. 14:00:26 Unable to deploy exoseal. manual pressure is held on the antigrade left femeral approach. 14:00:40 Procedure ended.(Physican Out) 14:02:31 Fluoroscopy time 19.80 minutes. 14:02:37 Fluoroscopy dose: 524 mGy 14:02:37 Flurop Dose total: 524 14:02:44 Contrast amount:Isovue 300 110ml. 14:02:47 Sharps counted by scrub and verified. 14:04:11 Post-op/insertion site Left Femoral artery dressed using a 4 x 4 and Tegaderm. 14:24:22 Procedure and supply charges have been captured, reviewed, submitted an d are correct. 14:25:53 see anesthesia notes for post monitoring of patient 14:25:56 Post Procedure Pulses reassessed and unchanged 14:26:04 Report given to Outpatients. 14:33:19 Full Disclosure recording stopped 14:36:58 Patient transfered to Outpatients with Stretcher. Intervention Summary Intervention Notes Time ActionType Lesion and Equipment Used Action# Pressure Duration Attributes 12:59:59 Inflate Undefined1 CHOCOLATE 3.0 x 1 0 00:00 balloon 120 x 150 balloon ([id number]) 13:47:49 Inflate Undefined1 CHOCOLATE 3.5 x 2 0 00:00 balloon 120 x 135 balloon ([id number]) Device Usage Item Name Manufacture Quantity Catalog Number [facility] Minimal Lot# / Charge Number Stock Stock Serial# Code Bag Decanter Microtek 1 [id number] 06377 03980 1 5 () Medical Inc. Sterile Cardinal 1 [id number] 062204 24322 3 5 Angiographic Pack Health Tegaderm 4 x 4 3M 1 1626W 892925 731630 52998 9 5 (1626W) SHEATH 5FR Terumo 1 CAI698 445991 348050 09844 5 5 [place] (FLQ866) DOC .035 wire Cook Medical 1 Z71752 627780 90607 0 5 (K23150) MICROPUNCTURE 4FR Cook Medical 1 S51980 746119 864850 19423 4 5 Quu (F21982) Cordis 5Fr BRITE Cardinal 1 [id number] 748935 17147 6 5 TIP 11cm sheath Health AMPLATZ Super [place] 1 [id number] 748283 058601 40613 0 5 [id number] Stiff 75cm wire Scientific ([id number]) GLIDE WIRE MERIT Merit 1 [id number] 456986 003107 93870 4 5 [id number] Angled 260cm Medical ([id number]) GLIDE CATHETER 5FR Terumo 1 CG507 936384 79242 9 5 ANGLED 65cm (CG507) TORQUE DEVICE [place] 1 TD01 906669 726217 33596 6 5 PLASTIC .038 ( Scientific TD01) Cordis 6Fr BRITE Cardinal 1 [id number] 787347 39054 2 5 TIP 11cm sheath Health SUAREZ 260 wire Cook Medical 1 L03637 373793 04240 11878 7 5 0067098 (J79183) CHOICE PT Extra [place] 1 [id number] 472309 088924 14135 3 5 [id number] Support J 300cm Scientific guide wire ([id number]) CHOCOLATE 3.0 x Medtronic 1 [id number] 786670 106584 24060 7 5 [id number] 120 x 150 balloon OTW [id number] ([id number]) [id number] INFLATOR Merit 1 JJ7351 593508 905796 95991 6 5 [facility] (Z[facility]) ACIST Manifold Acist 1 66507 139790 797151 45525 5 5 (17288) Medical Systems Inc ACIST Hand Control Acist 1 18655 603190 839824 17184 8 5 (50862) Medical Systems Inc ACIST Syringe Acist 1 19151 429814 248467 11175 1 20 (67956) Medical Systems Inc Hawkone Medium Medtronic 1 H1-M 690593 08409 984 5 Atherectomy System (H1-M) CHOCOLATE 3.5 x Medtronic 1 [id number] 152821 988033 43282 6 5 120 x 135 balloon O ([id number]) TW EXOSEAL 6Fr Cardinal 1 EX600 584898 246601 36599 3 10 (EX600) Health Signature Audit [place] Stage Time Signature Unsigned Intra-Procedure 06/13/2018 Agnieszka Kebede 2:37:11 PM RT(R) Signatures Monitor : Kirsten Signature : Hayley RT Date : Time : [address] [place] [address]
[~2018-06-13 08:22] MED LIST changes: +CELEXA20 MG PO; +CILOSTAZOL50 MG PO; +FUROSEMIDE20 MG PO; +MOBIC7.5 MG PO; +WELLBUTRIN XL150 M1 PO; +XTANDI40 MG PO
[2018-06-13 08:48] LABS: ANION GAP 13.2 mmol/L (8-16); CALCIUM 9.1 mg/dL (8.5-10.1); CARBON DIOXIDE 24.7 mmol/L (21.0-32.0); CREATININE - SERUM 1.5 mg/dL (0.6-1.3); POTASSIUM - SERUM 4.9 mmol/L (3.5-5.1)
[2018-06-13 08:49] LABS: BASOPHILS 0.5 % (0-2); EOSINOPHILS 7.7 % (0-7); HEMATOCRIT 40.3 % (42.0-54.0); HEMOGLOBIN 13.8 g/dL (13.5-17.5); IMMATURE GRANULOCYTES 0.5 % (0-5); LYMPHOCYTES 24.3 % (15-50); MCH 32.1 pg (26.0-34.0); MCHC 34.2 g/dL (31.0-37.0); MCV 93.7 fL (80.0-100.0); MEAN PLATELET VOLUME 9.3 fL (7.4-10.4); MONOCYTES 10.5 % (2-11); NEUTROPHILS 56.5 % (40-80); PLATELET COUNT 263 10x3/uL (130-400); RDW 16.4 % (11.5-14.5); WBC 4.4 10x3/uL (4.8-10.8)
[2018-06-13 08:53] LABS: APTT 27.1 SECONDS (22.8-39.4); INR 1.02 (0.85-1.17); PROTIME 12.9 SECONDS (11.6-15.0)
[2018-06-13 09:46] VITALS: BP 169/84; Ht 182.9 cm; Wt 88.6 kg
--- NOTE | 2018-06-13 19:55 | NUR ---
LEFT HAND PIV DC'D WITH TIP INTACT. DISCHARGE INSTRUCTIONS REVIEWED WITH PATIENT AND SPOUSE. PATIENT DRESSING IN PERSONAL CLOTHING WITH SPOUSE'S ASSISTANCE. PATIENT EXPRESSES UNDERSTANDING OF IMPORTANCE OF NOT BENDING OVER SHARPY AT THE WAIST
--- NOTE | 2018-06-13 20:10 | NUR ---
NO CHANGE IN LEFT GROIN ASSESSMENT, NO BLEEDING OR SIGNS OR SYMPTOMS OF HEMATOMA. PATIENT DISCHARGED HOME VIA WHEELCHAIR TO PRIVATE VEHICLE WITH SPOUSE
== END 2018-06-13 20:10 | disposition home or self-care (01) ==
LOC: D.SP 08:22 → D.RAD 12:00 → D.SP 20:10
PROVIDERS: ATTEND General Practice
DX: I70.212 Atherosclerosis of native arteries of extremities with intermittent claudication, left leg (principal); I70.92 Chronic total occlusion of artery of the extremities; Z01.812 Encounter for preprocedural laboratory examination

== ENCOUNTER → 2019-07-21 11:16 | Outpatient (CLI) | payer MEDICARE, OTHER ==
[2018-06-13 09:46] VITALS: BMI 26.5
== END | disposition home or self-care (01) ==
LOC: D.US 11:16
PROVIDERS: ATTEND General Practice
DX: I65.23 Occlusion and stenosis of bilateral carotid arteries (principal)

== ENCOUNTER → 2019-08-05 10:54 | Outpatient (CLI) | payer MEDICARE, OTHER ==
[2018-06-13 09:46] VITALS: BMI 26.5
== END | disposition home or self-care (01) ==
LOC: D.CT 10:54
PROVIDERS: ATTEND General Practice
DX: I65.23 Occlusion and stenosis of bilateral carotid arteries (principal)